=== PATIENT | female | born 1955 | race Caucasian/White ===

== ENCOUNTER 2018-07-02 19:54 | Inpatient (IN) | payer BC ==
[~2018-07-02] VITALS: Ht 160 cm; Wt 83.0 kg
[2018-07-02 20:16] VITALS: Ht 160 cm; Wt 83.0 kg
[2018-07-02 20:54] LABS: BASOPHIL % 1.3 % (0-2); PLATELET COUNT 183 x10^3mcL (130-400)
[2018-07-02 20:56] LABS: microscopic required? YES; urine erythrocyte NEGATIVE (NEGATIVE)
[2018-07-02 21:09] LABS: ALBUMIN 3.8 g/dL (3.4-5.0); ALKALINE PHOSPHATASE 98 U/L (46-116); ALT/SGPT 22 U/L (14-59); AST/SGOT 23 U/L (15-37); BILIRUBIN TOTAL 0.9 mg/dL (0.20-1.00); CALCIUM 8.7 mg/dL (8.5-10.1); CARBON DIOXIDE 23.6 mmol/L (21-32); CHLORIDE SERUM 103 mmol/L (98-107); CREATININE SERUM 0.7 mg/dL (0.6-1.0); GFR1 > 60 mL/min; GLUCOSE SERUM 94 mg/dL (74-106); POTASSIUM SERUM 4.1 mmol/L (3.5-5.1); SODIUM SERUM 137 mmol/L (136-145); TOTAL PROTEIN, SERUM 7.6 g/dL (6.4-8.2)
[2018-07-02] MEDS ORDERED: ATENOLOL50 MG PO (23:19)
[2018-07-03 01:14] VITALS: BP 164/84; BP 196/102
[2018-07-03 06:11] LABS: BASOPHIL % 0.4 % (0-2); PLATELET COUNT 140 x10^3mcL (130-400); RED CELL DISTRIBUTION WIDTH 13.7 % (11.5-14.5)
[2018-07-03 06:20] VITALS: BP 138/82
[2018-07-03 06:28] LABS: CALCIUM 8.2 mg/dL (8.5-10.1); CARBON DIOXIDE 27.8 mmol/L (21-32); CHLORIDE SERUM 109 mmol/L (98-107); CREATININE SERUM 0.8 mg/dL (0.6-1.0); GFR1 > 60 mL/min; GLUCOSE SERUM 92 mg/dL (74-106); POTASSIUM SERUM 4.1 mmol/L (3.5-5.1); SODIUM SERUM 142 mmol/L (136-145)
[2018-07-03 09:32] VITALS: BP 138/79
[2018-07-03 12:48] VITALS: BP 147/86
[2018-07-03 16:42] VITALS: BP 147/78
[2018-07-03 20:40] VITALS: BP 152/83
[2018-07-04 05:52] VITALS: BP 145/85
[2018-07-04 14:05] VITALS: BP 170/93
[2018-07-04 17:45] VITALS: BP 146/79
[2018-07-04 20:58] VITALS: BP 148/81
[2018-07-05 05:37] VITALS: BP 147/85
[2018-07-05 08:55] VITALS: BP 132/82
[2018-07-05 11:28] VITALS: BP 132/82
== END 2018-07-05 14:06 | disposition home or self-care (01) | DRG 394 ==
LOC: ED 19:54 → DU 22:42
PROVIDERS: Emergency Medicine; Internal Medicine; Internal Medicine Gastroenterology
PROC: 0DJD8ZZ Inspection of Lower Intestinal Tract, Via Natural or Artificial Opening Endoscopic (ICD-10-PCS; principal; 2018-07-04 10:45)
DX: K64.8 Other hemorrhoids (principal); N39.0 Urinary tract infection, site not specified; K57.32 Diverticulitis of large intestine without perforation or abscess without bleeding; K52.9 Noninfective gastroenteritis and colitis, unspecified; I10 Essential (primary) hypertension; Z68.32 Body mass index [BMI] 32.0-32.9, adult; Z88.0 Allergy status to penicillin; Z90.49 Acquired absence of other specified parts of digestive tract; Z72.89 Other problems related to lifestyle
CPT/HCPCS: 45378; J1200; J1610; J1885; J1956; J2250; J2310; J3010; J3490; J7030; J7050; Q0162